=== PATIENT | female | born 1975 | race Caucasian/White ===

== ENCOUNTER → 2024-09-08 15:23 | Outpatient (REF) | payer BC, SELFPAY | LOC: RAD 15:23 | PROVIDERS: ATTENDING PHYSICIAN Orthopaedic Surgery Hand Surgery | DX: S52.572A Other intraarticular fracture of lower end of left radius, initial encounter for closed fracture (principal) | CPT/HCPCS: 73200 ==

== ENCOUNTER 2024-09-13 06:30 | Day surgery (SDC) | payer BC, SELFPAY ==
[2024-09-13] VITALS (7 sets, daily range): BP systolic 110–125; BP diastolic 66–84; BMI 22.3
[2024-09-13] MEDS: NORMOSOL-R/PLASMALYTE-A 1000 IV (10:42)
== END 2024-09-13 15:35 | disposition home or self-care (01) ==
LOC: SDS 06:30
PROVIDERS: ATTENDING PHYSICIAN Orthopaedic Surgery Hand Surgery
DX: S52.572A Other intraarticular fracture of lower end of left radius, initial encounter for closed fracture (principal); S52.612A Displaced fracture of left ulna styloid process, initial encounter for closed fracture; X58.XXXA Exposure to other specified factors, initial encounter; E84.9 Cystic fibrosis, unspecified
CPT/HCPCS: 25609; 25652; C1713